=== PATIENT | male | born 1965 | race Caucasian/White ===

== ENCOUNTER 2016-06-18 07:32 | Emergency (ER) | payer BC | END 2016-06-18 10:58 | disposition home or self-care (01) | DX: R10.11 Right upper quadrant pain (principal); I10 Essential (primary) hypertension ==

== ENCOUNTER 2018-03-07 15:47 | Outpatient (CLI) | payer BC ==
[2018-03-07 16:18] LABS: ALBUMIN 4.3 g/dL (3.2-5.5); ALBUMIN/GLOBULIN RATIO 1.4 (1.0-2.2); ALKALINE PHOSPHATASE 73 IU/L (42-121); ALT ALANINE AMINOTRANSFERASE 71 IU/L (10-60); AST ASPARTATE AMINOTRANSFERASE 49 IU/L (10-42); BILIRUBIN,TOTAL 1.4 mg/dL (0.2-1.0); BUN - BLOOD UREA NITROGEN 18 mg/dL (6-20); CARBON DIOXIDE - CO2 29 mmol/L (21-32); CHLORIDE 104 mmol/L (101-111); CHOL/HDL RATIO 3.6 (<5.0); CHOLESTEROL 128 mg/dL; CREATININE 1.1 mg/dL (0.6-1.2); GFR - MDRD 70 (>89); GLUCOSE 80 mg/dL (70-100); HDL CHOLESTEROL 36 mg/dL; LDL CHOLESTEROL,CALCULATED 81 mg/dL; LDL/HDL RATIO 2.3 (<3.6); SODIUM 140 mmol/L (135-145); TOTAL PROTEIN 7.4 g/dL (6.7-8.2); VLDL CHOLESTEROL 11 mg/dL
== END 2018-03-07 15:48 | disposition home or self-care (01) ==
LOC: LAB 15:47
PROVIDERS: ATTEND Family Medicine
DX: I10 Essential (primary) hypertension (principal)
CPT/HCPCS: 36415; 80053; 80061; 83721

== ENCOUNTER 2018-03-22 12:00 | Outpatient (CLI) | payer BC ==
[2018-03-22] MEDS ORDERED: IOPAMIDOL-300 100 ML VIAL ONE (12:27)
[2018-03-22] MEDS ORDERED: IOPAMIDOL-300 100 ML VIAL IVP ONE (12:43)
--- NOTE | 2018-03-22 14:41 | CT Report ---
Reason: HX OF RENAL STONES 5X X 3 WKS (RENAL COLIC) T HEME Procedure Date: 03/22/2018 Accession Number: [id number] / [id number] Procedure: CT - IVP CPT Code: FULL RESULT: EXAM: CT ABDOMEN AND PELVIS WITHOUT AND WITH CONTRAST (CT IVP) EXAM DATE: 03/22/2018 12:46 PM. CLINICAL HISTORY: History of renal stones. COMPARISONS: None. TECHNIQUE: Routine helical imaging was performed through the kidneys, ureters and bladder in the precontrast, postcontrast and delayed phase. IV Contrast: 100 mL Isovue 300. Reconstructions: Coronal and sagittal. In accordance with CT protocol optimization, one or more of the following dose reduction techniques were utilized for this exam: automated exposure control, adjustment of mA and/or KV based on patient size, or use of iterative reconstructive technique. FINDINGS: Lung Bases: Dependent changes. Right Kidney/Ureter: No stones, hydronephrosis, or masses. Left Kidney/Ureter: No stones, hydronephrosis, or masses. Other Solid Organs: The liver, spleen, pancreas, gallbladder, and adrenal glands are unremarkable with the exception of a right adrenal adenoma.The bile ducts are unremarkable. Peritoneal Cavity/Bowel: Diverticulosis without diverticulitis. No free fluid, free air or adenopathy. No masses. Bowel loops are unremarkable. Pelvic Organs: No bladder stones, obstruction or masses. The visualized pelvic organs are unremarkable. Vasculature: Normal. Bones: No aggressive osseous lesions. Other: None. IMPRESSION: Normal CT IVP. No urinary tract masses, stones or obstruction. RADIA
== END 2018-03-22 12:01 | disposition home or self-care (01) ==
LOC: DI 12:00
PROVIDERS: ATTEND Family Medicine
DX: N23 Unspecified renal colic (principal); Z87.442 Personal history of urinary calculi
CPT/HCPCS: 74178; Q9967

== ENCOUNTER 2018-07-03 08:17 | Emergency (ER) | payer BC ==
[2018-07-03] MEDS ORDERED: KETOROLAC 60 MG/2 ML VIAL IM STA (08:55)
[2018-07-03] MEDS ORDERED: DEXAMETHASONE 10 MG/ML VIAL PO STA (08:55)
--- NOTE | 2018-07-03 09:00 | ED Physician Documentation ---
PD HPI BACK PAIN - Stated complaint Stated Complaint: R SIDE PAIN - Chief complaint Chief Complaint: General - History obtained from History obtained from: Patient - History of Present Illness Timing - onset: How many months ago (4) Timing - duration: Months (4) Timing - details: Gradual onset, Still present, Waxing and waning Location: Lower, Right Quality: Pain, Spasm, Sharp Associated symptoms: No: Fever, Weakness, Numbness, Incontinent of urine, Unable to urinate, Hematuria, Incontinent of stool Improves with: Rest, Position Worsened by: Movement, Twisting, Palpation Contributing factors: Lifting, Twisting Similar symptoms before: No diagnosis Recently seen: Not recently seen - Additional information Additional information: 53-year-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 He initially had pain back in March 2018 and at that time he went into see Dr. Luis because he had some hematuria as well. He had a negative IVP done at that time. He does have pain with movement and the pain is located specifically in an area of the patient's lower back on the right side. He does have some radiation of the pain associated with movement. He has had worsening of this pain over the past 2 weeks and is come in now this morning for evaluation. He has not been ill recently. Review of Systems Constitutional: denies: Fever Eyes: denies: Decreased vision Ears: denies: Ear pain Nose: denies: Congestion Throat: denies: Sore throat Cardiac: denies: Chest pain / pressure, Palpitations Respiratory: denies: Dyspnea, Cough GI: denies: Abdominal Pain, Nausea, Vomiting : denies: Dysuria, Frequency Skin: denies: Rash Musculoskeletal: reports: Back pain. denies: Neck pain, Extremity pain Neurologic: denies: Generalized weakness, Focal weakness, Numbness PD PAST MEDICAL HISTORY - Past Medical History Cardiovascular: Hypertension, High cholesterol GI: GERD : Kidney stones Psych: Depression - Past Surgical History Past Surgical History: Yes - Present Medications Home Medications: Ambulatory Orders Medication Instructions Recorded Confirmed Omeprazole [PriLOSEC] 20 mg PO DAILY 01/27/16 07/03/18 Cyclobenzaprine [Flexeril] 10 mg PO TID PRN #20 tablet 07/03/18 Hydrocodone/Acetaminophen 1 - 2 each PO Q6H PRN #14 tablet 07/03/18 [Hydrocodon-Acetaminophen 5-325] - Allergies Allergies/Adverse Reactions: Allergies Allergy/AdvReac Type Severity Reaction Status Date / Time No Known Drug Allergies Allergy Verified 07/03/18 08:33 - Social History Does the pt smoke?: No Smoking Status: Never smoker Does the pt drink ETOH?: Yes Does the pt have substance abuse?: No - Immunizations Immunizations are current?: Yes PD ED PE NORMAL - Vitals Vital signs reviewed: Yes (hypertensive marked diastolic) - General General: Alert and oriented X 3, No acute distress, Well developed/nourished - HEENT HEENT: Atraumatic, PERRL, EOMI - Neck Neck: Supple, no meningeal sign - Cardiac Cardiac: RRR, No murmur - Respiratory Respiratory: No respiratory distress, Clear bilaterally - Abdomen Abdomen: Soft, Non tender - Back Back: No CVA TTP, No spinal TTP, Other (There is specific tenderness to the paraspinous muscles of the lower lumbar spine on the right side reproducing the symptoms the patient is having. ) - Derm Derm: Normal color, Warm and dry, No rash - Extremities Extremities: No deformity, No edema - Neuro Neuro: Alert and oriented X 3, traffic monitor specialist 2-12 intact, No motor deficit, No sensory deficit, Normal speech Eye Opening: Spontaneous Motor: Obeys Commands Verbal: Oriented GCS Score: 15 - Psych Psych: Normal mood, Normal affect Results - Vitals Vitals: Vital Signs - 24 hr 07/03/18 08:29 Temperature 36.4 C L Heart Rate 75 Respiratory 14 Rate Blood Pressure 175/128 H O2 Saturation 94 Oxygen O2 Source Room air Procedures - IVC sono (time) 0850 Bedside IVC sono: IVC measures (cm) (1.23), IVC collapsed c insp (cm) (complete), Dehydration (est 1 liter deficit.) PD MEDICAL DECISION MAKING - ED course Complexity details: reviewed old records, reviewed results, re-evaluated patient, considered differential, d/w patient ED course: 53-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 He is also found to be dehydrated on interrogation the inferior vena cava. Here in the emerge department he is administered dexamethasone 10 mg orally and Toradol [address] will place him on some pain medication and muscle relaxant and have him hydrate excessively. He does have findings on his CT scan of a duplicated gallbladder or anomaly and I am relatively certain this is not playing a part in his presentation today. Departure - Departure Disposition: 01 Home, Self Care Clinical Impression: Spasm of back muscles, Dehydration Condition: Stable Instructions: ED Spasm Back No Trauma, ED Dehydration Follow-Up: Samson Luis MD [Primary Care Provider] - Prescriptions: Cyclobenzaprine [Flexeril] 10 mg PO TID PRN #20 tablet PRN Reason: Spasms Hydrocodone/Acetaminophen [Hydrocodon-Acetaminophen 5-325] 1 - 2 each PO Q6H PRN #14 tablet PRN Reason: pain Comments: Today in the Emergency Department your blood pressure was elevated. This can happen from the stress of the visit itself, from a current illness or circumstance or from uncontrolled hypertension. If you take blood pressure medications take your usual mediations, have your blood pressure re-checked in an appropriate setting and follow up any elevation with your primary care doctor. Forms: Activity restrictions
[2018-07-03 09:14] VITALS: BP 184/127
== END 2018-07-03 09:23 | disposition home or self-care (01) ==
LOC: ED 08:17
DX: M62.830 Muscle spasm of back (principal); E86.0 Dehydration; S39.012A Strain of muscle, fascia and tendon of lower back, initial encounter; X58.XXXA Exposure to other specified factors, initial encounter; Y99.0 Civilian activity done for income or pay; I10 Essential (primary) hypertension; E78.00 Pure hypercholesterolemia, unspecified
CPT/HCPCS: 96372; 99283

== ENCOUNTER 2023-02-15 14:43 | Outpatient (CLI) | payer OTHER, BC ==
--- NOTE | 2023-02-15 16:26 | XRAY Report ---
PROCEDURE: Elbow 3 View RT INDICATIONS: CONTUSION OF RT ELBOW,INITIAL ENCOUNTER TECHNIQUE: 3 views of the elbow were acquired. COMPARISON: None. FINDINGS: Bones: Questionable fracture of the radial neck. Soft tissues: No effusion. No suspicious soft tissue calcifications or masses. IMPRESSION: Questionable fracture of the radial neck, without a large effusion. Correlate with point tenderness. Reviewed by: Bud Gayle on 02/15/2023 4:24 PM PDT Approved by: Bud Gayle on 02/15/2023 4:24 PM PDT Station ID: [id number]
--- NOTE | 2023-02-15 16:26 | XRAY Report ---
PROCEDURE: Forearm RT INDICATIONS: CONTUSION OF RT FOREARM TECHNIQUE: 2 views of the forearm were acquired. COMPARISON: None. FINDINGS: Bones: No fractures or dislocations. No suspicious bony lesions. Soft tissues: No suspicious soft tissue calcifications or masses. IMPRESSION: No acute bony abnormality. Reviewed by: Bud Gayle on 02/15/2023 4:25 PM PDT Approved by: Bud Gayle on 02/15/2023 4:25 PM PDT Station ID: [id number]
== END 2023-02-15 14:44 | disposition home or self-care (01) ==
LOC: DI 14:43
PROVIDERS: ATTEND Family Medicine
DX: S50.01XA Contusion of right elbow, initial encounter (principal); S50.11XA Contusion of right forearm, initial encounter

== ENCOUNTER 2023-02-16 11:45 | Outpatient (CLI) | payer BC ==
[2023-02-16 18:18] LABS: BASOPHILS # (AUTO) 0.1 10^3/uL (0.0-0.1); BASOPHILS % (AUTO) 0.6 %; EOSINOPHILS # (AUTO) 0.6 10^3/uL (0.0-0.7); EOSINOPHILS % (AUTO) 7.7 %; HCT - HEMATOCRIT 49.6 % (42.0-52.0); HGB - HEMOGLOBIN 15.8 g/dL (14.0-18.0); LYMPHOCYTES # (AUTO) 1.8 10^3/uL (1.5-3.5); LYMPHOCYTES % (AUTO) 23.1 %; MEAN CORPUSCULAR HEMOGLOBIN 28.7 pg (27.0-31.0); MEAN CORPUSCULAR HGB CONC 31.9 g/dL (32.0-36.0); MEAN PLATELET VOLUME 11.7 fL (7.4-11.4); MONOCYTES # (AUTO) 0.6 10^3/uL (0.0-1.0); MONOCYTES % (AUTO) 7.6 %; NEUTROPHILS # (AUTO) 4.8 10^3/uL (1.5-6.6); NEUTROPHILS % (AUTO) 60.9 %; PLT - PLATELET COUNT 195 10^3/uL (130-450); RED BLOOD COUNT 5.51 10^6/uL (4.70-6.10); RED CELL DISTRIBUTION WIDTH 13.7 % (12.0-15.0); WHITE BLOOD COUNT 7.8 x10^3/uL (4.8-10.8)
[2023-02-16 18:31] LABS: ALBUMIN 4.3 g/dL (3.2-5.5); ALBUMIN/GLOBULIN RATIO 1.5 (1.0-2.2); CALCIUM 9.5 mg/dL (8.5-10.3); CREATININE 0.9 mg/dL (0.6-1.3); POTASSIUM 3.9 mmol/L (3.5-4.5); TOTAL PROTEIN 7.2 g/dL (6.4-8.9)
[2023-02-16 18:42] LABS: THYROID STIMULATING HORMONE 0.75 uIU/mL (0.34-5.60)
== END 2023-02-16 12:00 | disposition home or self-care (01) ==
LOC: LAB.N 11:45
PROVIDERS: ATTEND Family Medicine
DX: I10 Essential (primary) hypertension (principal)
CPT/HCPCS: 36415; 80053; 84443; 85025

== ENCOUNTER 2023-03-08 16:36 | Outpatient (CLI) | payer OTHER, BC ==
--- NOTE | 2023-03-08 18:25 | XRAY Report ---
PROCEDURE: Elbow 3 View RT INDICATIONS: NONDISPLACED FRACTURE OF NECK OF RIGHT RADIUS,SUBS TECHNIQUE: 3 views of the elbow were acquired. COMPARISON: Radiograph 02/15/2023 FINDINGS: Bones: Healing radial neck fracture. Soft tissues: No effusion. No suspicious soft tissue calcifications or masses. IMPRESSION: Healing radial neck fracture. Reviewed by: Bud Gayle on 03/08/2023 6:23 PM PDT Approved by: Bud Gayle on 03/08/2023 6:23 PM PDT Station ID: [id number]
--- NOTE | 2023-03-08 18:26 | XRAY Report ---
PROCEDURE: Wrist 2 View RT INDICATIONS: PAIN IN RIGHT WRIST TECHNIQUE: 2 views of the wrist were acquired. COMPARISON: 03/08/2023 FINDINGS: Bones: No fractures or dislocations. No suspicious bony lesions. Soft tissues: No suspicious soft tissue calcifications or masses. IMPRESSION: No acute bony abnormality. Reviewed by: Bud Gayle on 03/08/2023 6:24 PM PDT Approved by: Bud Gayle on 03/08/2023 6:24 PM PDT Station ID: [id number]
== END 2023-03-08 16:37 | disposition home or self-care (01) ==
LOC: DI 16:36
PROVIDERS: ATTEND Nurse Practitioner
DX: S52.13 Fracture of neck of radius (principal); M25.531 Pain in right wrist

== ENCOUNTER 2023-03-27 08:00 | Outpatient (CLI) | payer BC ==
--- NOTE | 2023-03-27 11:05 | XRAY Report ---
PROCEDURE: Elbow 3 View RT INDICATIONS: RIGHT ELBOW FRACTURE TECHNIQUE: 3 views of the elbow were acquired. COMPARISON: 03/08/2023 FINDINGS: Bones: Interval bone remodeling of the radial neck fracture. Soft tissues: No effusion. No suspicious soft tissue calcifications or masses. IMPRESSION: Slight interval healing of the radial neck fracture. Reviewed by: Bud Gayle on 03/27/2023 11:04 AM [facility] Approved by: Bud Gayle on 03/27/2023 11:04 AM [facility] Station ID: [id number]
== END 2023-03-27 23:59 | disposition home or self-care (01) ==
LOC: DI.WOS 08:00
PROVIDERS: ATTEND Physician Assistant Surgical
DX: S52.13 Fracture of neck of radius (principal)